=== PATIENT | female | born 1990 | race Caucasian/White ===

== ENCOUNTER 2021-11-05 10:25 | Day surgery (SDC) | payer BC ==
[~2021-11-05] VITALS: Ht 172.7 cm; Wt 103.4 kg
[2021-11-05 10:55] VITALS: BP 141/98
[2021-11-05] MEDS ORDERED: LACTATED RINGERS 1,000 ML IV ONE (10:59)
[2021-11-05] MEDS ORDERED: MIDAZOLAM 2 MG/2 ML (VERSED) VIAL ONE (11:04)
[2021-11-05] MEDS ORDERED: PROPOFOL INJECTION 50 ML IV ONE (11:04)
[2021-11-05] MEDS ORDERED: HURRICAINE EXT TUBE (BENZOCAINE) ONE (11:05)
[2021-11-05] MEDS ORDERED: LIDOCAINE JELLY 2% 6 ML SYRINGE ONE (11:08)
[2021-11-05 11:20] VITALS: BP 112/59
[2021-11-05 11:25] VITALS: BP 128/64
--- NOTE | 2021-11-05 11:41 | Progress Note-Pre Operative ---
Pre-Operative Progress Note Date of Available H&P: Nov 05, 2021 Date H&P Reviewed: Nov 05, 2021 Time H&P Reviewed: 11:00 History & Physical: No changes noted Pre-Operative Diagnosis: GERD MALIK QUIROZ MD Nov 05, 2021 11:41
[2021-11-05] MEDS ORDERED: PANT40TA2 PO (11:43)
--- NOTE | 2021-11-05 11:43 | Progress Note-Post Operative ---
Post-Operative Progess Note Surgeon (s)/Net Sql Developer (s) Surgeon MALIK QUIROZ MD Net Sql Developer: none Pre-Operative Diagnosis GERD Post-Operative Diagnosis reflux esophagitis(grade B), small-mod HH(2.5cm), mild gastritis. Procedure & Operative Findings Date of Procedure 11/05/21 Procedure Performed/Findings EGD with bx. Anesthesia Type mac Estimated Blood Loss Estimated blood loss (mL): minimal Specimens/Packing Specimens Removed ge jxn, antrum MALIK QUIROZ MD Nov 05, 2021 11:43
--- NOTE | 2021-11-05 11:44 | Discharge Inst-Surgical ---
D/C Lap Instructions-KIDO New, Converted, or Re-Newed RX: RX on Chart Follow Up PRN Activity as tolerated High Fiber Diet 25g or more per day Avoid Alcohol, Caffeine, Spicy [place] and Acid foods. Drink 64 fluid oz or more of fluids per day. Symptoms to Report: Fever over 101 degree F, Nausea/Vomiting If any problems/questions: Contact your physician or go to Emergency Room MALIK QUIROZ MD Nov 05, 2021 11:44
[2021-11-05 11:45] VITALS: BP 116/86
[2021-11-05] MEDS ORDERED: ONDANSETRON 4 MG (ZOFRAN) ORAL DISSOLVE TAB PO PRN (11:45)
[2021-11-05] MEDS ORDERED: ONDANSETRON 4 MG/2 ML (SDV) Z0FRAN IVP PRN (11:45)
[2021-11-05 11:48] VITALS: BP 128/64
[2021-11-05 11:53] VITALS: BP 128/64
--- NOTE | 2021-11-05 12:07 | Anesthesia-General Post-Op ---
MAC Patient Condition Mental Status/LOC: Same as Preop Cardiovascular: Satisfactory Nausea/Vomiting: Absent Respiratory: Satisfactory Pain: Controlled Complications: Absent Post Op Complications Complications None Follow Up Care/Instructions Patient Instructions None needed. Anesthesiology Discharge Order Discharge Order Patient is doing well, no complaints, stable vital signs, no apparent adverse anesthesia problems. No complications reported per nursing. GABINO CLARK CRNA Nov 05, 2021 12:07
--- NOTE | 2021-11-05 12:44 | OPERATIVE REPORT ---
DATE OF SERVICE: 11/05/2021 PREOPERATIVE DIAGNOSIS: Gastroesophageal reflux disease. POSTOPERATIVE DIAGNOSES: Reflux esophagitis, Stanly grade B, small to moderate size hiatal hernia approximately 2.5 cm in size and mild to moderate gastritis. PROCEDURES PERFORMED: EGD with biopsy. SURGEON: Malik Quiroz MD. ANESTHESIA: Monitored anesthesia care. ESTIMATED BLOOD LOSS: Minimal. FINDINGS: Reflux esophagitis, Stanly grade B, small to moderate size hiatal hernia approximately 2.5 cm in size and mild to moderate gastritis. DISPOSITION: The patient tolerated the procedure well. INDICATIONS FOR PROCEDURE: The patient is a 30-year-old female, who has had persistent reflux type of symptoms for greater than 10 years now. She states that in the past several months, this has significantly worsened and states that if she sleeps supine, she does have significant pain and also does have regurgitation and lately has been sleeping in a recliner. She has tried many [id number] antacids; however, these have become ineffective. DESCRIPTION OF PROCEDURE: The patient was brought to the endoscopy suite and laid in the left lateral decubitus position. After adequate IV pain and sedative medications and monitored anesthesia care, the mouthpiece was applied. The endoscope was then placed in the mouth, visualizing the pharynx and hypopharyngeal region. Vocal cords, epiglottis, and vallecula identified and appeared to be normal. The endoscope was then gently intubated into the esophageal opening and esophagus insufflated. The endoscope was then advanced through the first, second and third portion of the esophagus. At the level of the GE junction, a reflux esophagitis, Stanly grade B identified. No ulcers or strictures identified in this region and a biopsy was taken with forceps with visualization of good hemostasis. The endoscope was then advanced into the stomach and endoscope retroflexed visualizing a small to moderate size hiatal hernia approximately 2.5 cm in size. This is the likely cause of why she does have significant reflux. There was a mild to moderate gastritis. No formal ulcerations, polyps or any neoplasms. A biopsy was taken of the antrum to rule out H. pylori with visualization of good hemostasis. The endoscope was then advanced to the pylorus and the first and second portion of the duodenum, which appeared normal with no distal obstructions. The endoscope was then slowly withdrawn while taking a second look and suctioning of residual air with no additional findings. The patient tolerated the procedure well. We will recommend the necessary lifestyle and dietary accommodation including small and more frequent meals, avoidance of eating at night as well as head elevation while lying supine. We will also start her on Protonix 40 mg daily. She will also be recommended on decreasing amount of caffeinated beverages, spicy, greasy and acidic foods as well as alcoholic beverages. If she continues with strict medical management and continues to have symptoms, she may be a candidate for a hiatal hernia repair. However, due to her body mass index, this may be risk prohibitive and in this scenario, we would recommend repair of the hiatal hernia in conjunction with a bariatric surgical procedure. Job ID: [id number] DocumentID: [id number] Dictated Date: 11/05/2021 11:24:38 Pocket Builder Date: 11/05/2021 12:43:31 Dictated By: MALIK QUIROZ MD
== END 2021-11-05 11:54 | disposition home or self-care (01) ==
LOC: ENDO 10:25
PROVIDERS: ATTEND Surgery
DX: K21.00 Gastro-esophageal reflux disease with esophagitis, without bleeding (principal); K31.89 Other diseases of stomach and duodenum; K44.9 Diaphragmatic hernia without obstruction or gangrene; K29.70 Gastritis, unspecified, without bleeding
CPT/HCPCS: 84703; 88305

== ENCOUNTER 2022-03-08 05:29 | Outpatient (CLI) | payer BC ==
[~2022-03-08] VITALS: Ht 173.2 cm; Wt 103.6 kg
[~2022-03-08 05:29] MED LIST: PANT40TA2 PO
[2022-03-09] MEDS ORDERED: CRAN125T PO (16:52)
[2022-03-09] MEDS ORDERED: MULT-1136 PO (16:52)
== END 2022-03-09 17:51 | disposition home or self-care (01) ==
LOC: PREOP 05:29
PROVIDERS: ATTEND Obstetrics & Gynecology
DX: Z01.818 Encounter for other preprocedural examination (principal)

== ENCOUNTER 2022-03-15 05:49 | Day surgery (SDC) | payer BC ==
[~2022-03-15] VITALS: Ht 173 cm; Wt 103.6 kg
[2022-03-15] VITALS (14 sets, daily range): BP systolic 90–154; BP diastolic 61–98
[~2022-03-15 05:49] MED LIST changes: +CRAN125T PO; +MULT-1136 PO
[2022-03-15] MEDS ORDERED: ceFAZolin INJECTION 2,000 MG in NS (IVPB) 50 ML IV ONE (06:00)
[2022-03-15] MEDS ORDERED: metroNIDAZOLE 500MG/100ML IVPB 100 ML IV ONE (06:00)
[2022-03-15] MEDS: LACTATED RINGERS 1,000 ML IV PRN ×2 (06:20→08:00)
[2022-03-15 06:35] LABS: BASOPHILS % (AUTO) 0 % (0-10); EOSINOPHILS # (AUTO) 0.2 10^3/uL (0.0-0.3); EOSINOPHILS % (AUTO) 3 % (0-10); HEMATOCRIT 40 % (35-52); HEMOGLOBIN 13.4 g/dL (11.5-16.0); LYMPHOCYTES # (AUTO) 1.8 10^3/uL (1.0-4.0); LYMPHOCYTES % (AUTO) 31 % (12-44); MEAN CORPUSCULAR HEMOGLOBIN 27 pg (25-34); MEAN CORPUSCULAR HGB CONC 34 g/dL (32-36); MEAN CORPUSCULAR VOLUME 81 fL (80-99); MEAN PLATELET VOLUME 8.9 fL (9.0-12.2); MONOCYTES # (AUTO) 0.5 10^3/uL (0.0-1.0); MONOCYTES % (AUTO) 8 % (0-12); NEUTROPHILS # (AUTO) 3.4 10^3/uL (1.8-7.8); NEUTROPHILS % (AUTO) 58 % (42-75); PLATELET COUNT 282 10^3/uL (130-400); WHITE BLOOD COUNT 5.9 10^3/uL (4.3-11.0)
[2022-03-15] MEDS ORDERED: ONDANSETRON 4 MG/2 ML (SDV) Z0FRAN IV ONE (07:00)
[2022-03-15] MEDS ORDERED: FAMOTIDINE 20MG/2ML IV (PEPCID) IV ONE (07:00)
[2022-03-15] MEDS ORDERED: FAMOTIDINE 20MG/2ML IV (PEPCID) ONE (07:01)
[2022-03-15] MEDS ORDERED: ONDANSETRON 4 MG/2 ML (SDV) Z0FRAN ONE ×2 (07:01→07:11)
[2022-03-15] MEDS ORDERED: BUPIVACAINE 0.25% 30 ML (SENSORCAINE) VIAL ONE (07:09)
[2022-03-15] MEDS ORDERED: proPOfol 200 MG/20 ML (DIPRIVAN) VIAL IV ONE (07:11)
[2022-03-15] MEDS ORDERED: GLYCOPYRROLATE 0.2 MG/ML (ROBINUL) 2 ML VIAL ONE (07:11)
[2022-03-15] MEDS ORDERED: fentaNYL INJ 100 MCG/2 ML AMP ONE ×2 (07:11→08:02)
[2022-03-15] MEDS ORDERED: KETOROLAC 30 MG/ML VIAL ONE (07:11)
[2022-03-15] MEDS ORDERED: MIDAZOLAM 2 MG/2 ML (VERSED) VIAL ONE (07:11)
[2022-03-15] MEDS ORDERED: LIDOCAINE PF 2% 5 ML (XYLOCAINE) VIAL ONE (07:11)
[2022-03-15] MEDS ORDERED: NEOSTIGMINE (BLOXIVERZ ) 1 MG/1ML 10 ML VIAL ONE (07:11)
[2022-03-15] MEDS ORDERED: ROCURONIUM 50 MG/5 ML (ZEMURON) VIAL IV ONE (07:11)
--- NOTE | 2022-03-15 07:22 | Progress Note-Pre Operative ---
Pre-Operative Progress Note Date of Available H&P: Mar 15, 2022 Date H&P Reviewed: Mar 15, 2022 Time H&P Reviewed: 07:05 History & Physical: H&P Reviewed, Patient Examed, No changes noted Pre-Operative Diagnosis: CPP, Endometriosis, Dysmenorrhea, Dysparenunia JAMAL MCGHEE DO Mar 15, 2022 07:22
--- NOTE | 2022-03-15 07:25 | Discharge Inst-Women's Service ---
Discharge Inst-Women's Serv Depart Medication/Instructions New, Converted or Re-Newed RX: Transmitted to Pharmacy Problems Reviewed?: Yes Consults/Follow Up Additional Follow Up: Yes Orders/Referrals Dr. Paz or [place] in 7-10 days and in 8 weeks Activity Activity: Activity as Tolerated Driving Instructions: No Driving for 1 Week NO SMOKING: NO SMOKING Nothing Inside Vagina: No Douching, No [place], No Tampons Diet Discharge Diet: No Restrictions Symptoms to Report to : Bleeding Excessive, Pain Increased, Fever Over 101 Degrees F, Vaginal Bleeding Increase, Questions/Concerns For Any Problems or Questions: Contact Your Physician Skin/Wound Care Infection Signs and Symptoms: Increased Redness, Foul Odor of Wound, Increased Drainage, Skin Itchy or Has a Rash, Increased Swelling, Temperature Above 101 F Operative Area Clean and Dry: Keep Incision Clean/Dry Stitches/Timmy/Dermabond: Dermabond, Care of Stitches Bathing Instructions: JAMAL Stanford DO Mar 15, 2022 07:25
[2022-03-15] MEDS ORDERED: DOCU100C37 PO (07:26)
[2022-03-15] MEDS ORDERED: HYDR-34 PO (07:26)
[2022-03-15] MEDS ORDERED: IBUP-844 PO (07:26)
[2022-03-15] MEDS ORDERED: SIME80TA16 PO (07:26)
[2022-03-15] MEDS ORDERED: SIMETHICONE 80 MG (MYLICON) CHEW PO PRN (07:30)
[2022-03-15] MEDS ORDERED: BENZOCAINE LOZENGES 1 EACH LOZENGE MM PRN (07:30)
[2022-03-15] MEDS ORDERED: ZOLPIDEM 5 MG (AMBIEN) TAB PO PRN (07:30)
[2022-03-15] MEDS ORDERED: HYDROcodone/APAP 7.5 MG/325 MG (LORTAB, LORCET PLUS) TABLET PO PRN (07:30)
[2022-03-15] MEDS ORDERED: ANTACID SUSP 30 ML UDC (MYLANTA) PO PRN (07:30)
[2022-03-15] MEDS ORDERED: ONDANSETRON 4 MG/2 ML (SDV) Z0FRAN IV PRN (07:30)
[2022-03-15] MEDS ORDERED: IBUPROFEN 600 MG (MOTRIN) TAB PO PRN (07:30)
[2022-03-15] MEDS ORDERED: DOCUSATE SODIUM 100 MG (COLACE) CAP PO PRN (07:30)
[2022-03-15] MEDS ORDERED: LACTATED RINGERS 1,000 ML IV SCH (07:30)
[2022-03-15] MEDS ORDERED: BUPIVACAINE 0.25% 30 ML (SENSORCAINE) VIAL INJ ONE (08:28)
[2022-03-15] MEDS ORDERED: SUGAMMADEX 500 MG/5 ML VIAL (BRIDION) IV ONE (08:57)
[2022-03-15] MEDS ORDERED: SEVOFLURANE (ULTANE) 15 ML INHAL SOLN ONE (09:01)
[2022-03-15] MEDS ORDERED: MEPERIDINE (DEMEROL) INJ 50 MG/ML IVP ONE (09:15)
[2022-03-15] MEDS ORDERED: PROMETHAZINE INJ 25 MG/ML (PHENERGAN) AMP IVP ONE (09:15)
[2022-03-15] MEDS ORDERED: morphine INJ 10 MG/ML 1ML (SYR OR VIAL) IVP ONE (09:15)
[2022-03-15] MEDS ORDERED: HYDROmorphone 2 MG/ML VIAL (DILAUDID) IV ONE (09:15)
[2022-03-15] MEDS ORDERED: ONDANSETRON 4 MG/2 ML (SDV) Z0FRAN IVP PRN (09:15)
--- NOTE | 2022-03-15 10:02 | Anesthesia-General Post-Op ---
General Patient Condition Mental Status/LOC: Same as Preop Cardiovascular: Satisfactory Nausea/Vomiting: Absent Respiratory: Satisfactory Pain: Controlled Complications: Absent Post Op Complications Complications None Follow Up Care/Instructions Patient Instructions None needed. Anesthesia/Patient Condition Patient Condition Patient is doing well, no complaints, stable vital signs, no apparent adverse anesthesia problems. No complications reported per nursing. GABINO CLARK CRNA Mar 15, 2022 10:02
[2022-03-15] MEDS ORDERED: ONDANSETRON 4 MG/2 ML (SDV) Z0FRAN IVP ONE (13:45)
[2022-03-15] MEDS: KETOROLAC 30 MG/ML VIAL IVP PRN ×2 (14:11→20:10)
[2022-03-15] MEDS ORDERED: METOCLOPRAMIDE INJ 10 MG/2 ML (REGLAN) IVP PRN (17:15)
[2022-03-15] MEDS ORDERED: SCOPOLAMINE 1.5 MG (TRANSDERM-SCOP) PATCH TD NR (17:45)
--- NOTE | 2022-03-15 17:49 | OPERATIVE REPORT ---
DATE OF SERVICE: 03/15/2022 PREOPERATIVE DIAGNOSES: 1. A 31-year-old female with dysmenorrhea. 2. Endometriosis. 3. Chronic pelvic pain. 4. Menorrhagia. 5. Dyspareunia. POSTOPERATIVE DIAGNOSES: 1. A 31-year-old female with dysmenorrhea. 2. Endometriosis. 3. Chronic pelvic pain. 4. Menorrhagia. 5. Dyspareunia. PROCEDURE: Robotic-assisted total laparoscopic hysterectomy, bilateral salpingo-oophorectomy. SURGEON: Solitario Paz DO CHEMISTRY PHYSICS TEACHER: Lima Ny DNP was necessary for manipulation and retraction throughout the procedure. ANESTHESIA: General endotracheal. ESTIMATED BLOOD LOSS: Minimal. URINE OUTPUT: 900 mL clear at the end of the procedure. FLUIDS: 1600 mL lactated Ringer's solution. ESTIMATED BLOOD LOSS: Minimal. SPECIMENS SENT: Uterus, bilateral fallopian tubes and ovaries. INDICATIONS FOR PROCEDURE: A 31-year-old female, was a patient who had sought care with Dr. Grajeda until just recently when Dr. Grajeda left our office. She sought to continue her care with us. She had undergone multiple treatments for endometriosis in the past and has been diagnosed with endometriosis in the past. Based on laparoscopic evaluation, multiple treatment alternatives have been exhausted and the patient is still having significant amounts of pain, pain with intercourse, pain with periods and very heavy periods. Due to all other alternatives having been attempted without any improvement, I discussed with the patient in detail proceeding with robotic-assisted hysterectomy with removal of the ovaries. I discussed with the patient the need for hormone replacement after intermediate period of allowing the endometriosis to subside after hormones are gone. Risk of the procedure were discussed with the patient in detail including the risk of premature menopause, risk of bleeding, infection, damage to surrounding structures including but not limited to bowel, bladder, ureter, kidneys, possible need for reoperation, postoperative complications that may occur, recovery timeframe risk from anesthesia, and even . After everything was discussed with the patient in detail, consent was obtained preoperatively. The patient was taken to the operating room. DESCRIPTION IN DETAIL: Once in the operating room, general anesthesia was administered and found to be adequate, was placed in the dorsal lithotomy position, prepped and draped in normal sterile fashion. A timeout was performed. Mcclain catheter was placed using sterile technique. Weighted speculum was inserted in the patient's vagina, which allowed me to visualize the cervix, was grasped 12 o'clock position using an 0 Vicryl suture the anterior lip of the cervix. Once the suture was in place using my retraction on the cervix, I gently sound the uterine cavity depth was found to be 8 cm. I placed an 8 cm NORIS uterine manipulator tip and a 3.5 cm colpotomy ring into the vagina and the tip was placed into the uterus where the balloon was deployed. The colpotomy ring was advanced around the vaginal fornix, after which all other instruments were removed from the patient's vagina and performed a change of gloves. I turned my attention to the abdomen where subcostally at the midclavicular line, I introduced a Veress needle through the skin and the correct placement was confirmed using saline drop test and opening pressure of 3 mmHg. I noted proceeded with CO2 insufflation to maximum pressure of 15 mmHg, at which point I make an 8 mm infraumbilical incision with a knife and direct a blunt laparoscopic da Steven camera trocar through the incision. A tension-free placement was confirmed using the da Steven laparoscope. There was no evidence of damage from entry site. A brief scan of the upper abdominal anatomy appears to be grossly normal and the Veress needle was removed at that point. I then had the patient placed in steep Trendelenburg where I am able to visualize all my pelvic anatomy as defined in my findings above. I placed 2 lateral 8 mm trocars. These were both da Steven trocars were placed under direct visualization of laparoscope. Once both of these trocars were in place, I bring in the da Steven robot and docked in appropriate fashion, I placed the SynchroSeal device. The left hand and monopolar mónica in the right hand. I placed a da Steven operative console. I performed the following dissection bilaterally starting at the IP ligament. I sealed and transected using the SynchroSeal device. I then grasped the round ligament, was sealed and transected using the SynchroSeal device. I then grasped the entire broad ligament, which I sealed and transected using the SynchroSeal device. I take the dissection down to the level of the lower uterine segment, at which point I the anterior and posterior leaf of the broad ligament. The anterior leaflet was taken around the anterior vaginal fornix, posterior leaflet was taken around the posterior vaginal fornix. This allows me to skeletonize the uterine vessels laterally, which I sealed and transected using the SynchroSeal device. I then created a colpotomy at 12 o'clock position using monopolar mónica and took this circumferentially around the vaginal fornix amputating the cervix away from the vagina. The entire specimen was then removed through the vagina. I then closed the vaginal cuff using 2-0 V-Loc in a running fashion. Once again, there was no active bleeding noted from any of my dissection planes. I then undocked the da Steven robot and copiously irrigated the pelvis with normal saline. Once again, the dissection planes were inspected and found to be hemostatic. I then covered all my dissection planes with Surgiflo hemostatic agent to ensure excellent postoperative hemostasis. I had the patient was taken out of steep Trendelenburg where I removed the lateral trocars under direct visualization of laparoscope. The infraumbilical trocar was left in place to release the remainder of insufflation and introduced 10 mL of 0.25% Marcaine in the peritoneal cavity for postoperative pain management. I then removed this trocar as well. The skin reapproximated using 4-0 Monocryl interrupted subcuticular stitches. Dermabond was applied to incision and Band-Aids were placed over the incisions as well. The patient tolerated the procedure well and was taken to recovery in stable condition. Lap and sponge counts were correct at the end of the procedure. Instrument counts correct as well. Two grams of Ancef and 500 mg of Flagyl were given preoperatively for infection prophylaxis. Job ID: [id number] DocumentID: [id number] Dictated Date: 03/15/2022 09:54:40 [employer] Date: 03/15/2022 17:47:00 Dictated By: SOLITARIO PAZ DO
[2022-03-16 00:05] VITALS: BP 102/59
[2022-03-16] MEDS: KETOROLAC 30 MG/ML VIAL IVP PRN (02:01)
[2022-03-16 04:05] VITALS: BP 116/55
[2022-03-16 08:05] VITALS: BP 125/73
[2022-03-16 10:00] VITALS: BP 125/73
[2022-03-18] MEDS ORDERED: SCOPOLAMINE PATCH REMOVAL TP SCH (17:45)
== END 2022-03-16 10:00 | disposition home or self-care (01) ==
LOC: SDC 05:49 → WS 10:04 → SDC 03-16 10:00
PROVIDERS: ATTEND Obstetrics & Gynecology
DX: N83.8 Other noninflammatory disorders of ovary, fallopian tube and broad ligament (principal); N83.292 Other ovarian cyst, left side; N83.291 Other ovarian cyst, right side; N80.399 Endometriosis of the pelvic peritoneum, other specified sites, unspecified depth; N80.03 Adenomyosis of the uterus; N80.00 Endometriosis of the uterus, unspecified; K21.9 Gastro-esophageal reflux disease without esophagitis; E66.9 Obesity, unspecified; Z28.310 Unvaccinated for COVID-19; Z68.34 Body mass index [BMI] 34.0-34.9, adult
CPT/HCPCS: 36415; 84703; 85025; 86850; 86900; 86901; 87081; 88307; 94664